=== PATIENT | male | born 1960 | race Two or more races ===

== ENCOUNTER → 2018-02-07 | Outpatient (CLI) | payer OTHER ==
[~2018-02-07] MED LIST: proair inhaler; symbicort inhaler
[2018-02-07 07:19] LABS: BASOPHILS # (AUTO) 0.04 x10^3/uL (0-0.1); BASOPHILS % (AUTO) 1 % (0-1); EOSINOPHILS # (AUTO) 0.28 x10^3/uL (0-0.4); EOSINOPHILS % (AUTO) 4 % (1-7); LYMPHOCYTES # (AUTO) 2.14 x10^3/uL (1-3.4); LYMPHOCYTES % (AUTO) 32 % (22-44); MD NO; MEAN CORPUSCULAR HGB CONC 33.8 g/dL (33.2-36.2); MEAN PLATELET VOLUME 7.2 fL (7.4-10.4); MONOCYTES # (AUTO) 0.49 x10^3/uL (0.2-0.8); MONOCYTES % (AUTO) 7 % (2-9); NEUTROPHILS # (AUTO) 3.67 x10^3/uL (1.8-6.8); NEUTROPHILS % (AUTO) 55 % (42-75); PLATELET COUNT 217 x10^3/uL (130-400); RED BLOOD COUNT 4.91 x10^6/uL (4.38-5.82)
[2018-02-07 07:29] LABS: ALANINE AMINOTRANSFERASE 32 U/L (12-78); ALBUMIN 3.4 g/dL (3.4-5.0); ANION GAP 13 mmol/L (5-15); CALCIUM 7.7 mg/dL (8.5-10.1); CHLORIDE 105 mmol/L (98-107); CREATININE 0.92 mg/dL (0.7-1.3)
[2018-02-07 07:40] LABS: ALKALINE PHOSPHATASE 90 U/L (45-117); BILIRUBIN,TOTAL 0.5 mg/dL (0.2-1.0); CHOL/HDL RATIO 6.6; CHOLESTEROL, TOTAL 225 mg/dL (140-239); HDL CHOL % 15 % (26-37); HDL CHOLESTEROL (DIRECT) 34 mg/dL (40-60); TOTAL PROTEIN 7.6 g/dL (6.4-8.2); TRIGLYCERIDES 435 mg/dL (50-200)
[2018-02-07 08:20] LABS: HEMOGLOBIN A1C 5.4 % (4.2-6.3)
== END | disposition home or self-care (01) ==
LOC: LAB 07:03
PROVIDERS: ATTEND Family Medicine
DX: E55.9 Vitamin D deficiency, unspecified (principal); E78.5 Hyperlipidemia, unspecified; G47.10 Hypersomnia, unspecified; J45.909 Unspecified asthma, uncomplicated; R53.83 Other fatigue
CPT/HCPCS: 36415; 80053; 80061; 82306; 83036; 84443; 85025

== ENCOUNTER → 2018-04-02 | Outpatient (CLI) | payer OTHER | END | disposition home or self-care (01) | LOC: LAB 09:17 | PROVIDERS: ATTEND Family Medicine | DX: E03.9 Hypothyroidism, unspecified (principal); E55.9 Vitamin D deficiency, unspecified | CPT/HCPCS: 36415; 82330; 84443 ==

== ENCOUNTER → 2018-12-02 | Outpatient (CLI) | payer OTHER ==
[2018-12-02 13:05] LABS: HEMOGLOBIN A1C 5.3 % (4.2-6.3)
[2018-12-02 13:07] LABS: CHLORIDE 110 mmol/L (98-107)
[2018-12-02 13:22] LABS: ALANINE AMINOTRANSFERASE 28 U/L (12-78); ALBUMIN 3.6 g/dL (3.4-5.0); ALKALINE PHOSPHATASE 73 U/L (45-117); ANION GAP 5 mmol/L (5-15); BILIRUBIN,TOTAL 0.3 mg/dL (0.2-1.0); CALCIUM 8.3 mg/dL (8.5-10.1); CHOL/HDL RATIO 4.6; CHOLESTEROL, TOTAL 198 mg/dL (140-239); CREATININE 0.83 mg/dL (0.7-1.3); HDL CHOL % 22 % (26-37); HDL CHOLESTEROL (DIRECT) 43 mg/dL (40-60); LDL CHOLESTEROL,CALCULATED 114 mg/dL (54-169); LDL/HDL RATIO 2.7 (0.5-3.0); TOTAL PROTEIN 7.3 g/dL (6.4-8.2); TRIGLYCERIDES 207 mg/dL (50-200); VLDL CHOLESTEROL 41 mg/dL (0-25)
== END | disposition home or self-care (01) ==
LOC: CFH 10:35
PROVIDERS: ATTEND Family Medicine
DX: E78.5 Hyperlipidemia, unspecified (principal); E03.9 Hypothyroidism, unspecified; E55.9 Vitamin D deficiency, unspecified; I10 Essential (primary) hypertension; R53.83 Other fatigue
CPT/HCPCS: 36415; 80053; 80061; 83036; 84443

== ENCOUNTER 2019-05-27 16:26 | Emergency (ER) | payer OTHER ==
[~2019-05-27] VITALS: Ht 165.1 cm; Wt 96.0 kg
[2019-05-27] MEDS ORDERED: GEMF600T8 PO (16:51)
[2019-05-27] MEDS ORDERED: LEVO50TA5 PO (16:52)
[2019-05-27] MEDS ORDERED: CHOL500050 PO (16:53)
--- NOTE | 2019-05-27 16:53 | NUR ---
THIS IS A 58 YO MALE COMING IN FOR EPIGASTRIC PAIN 04/16. PAIN STARTED AROUND 1700, DID NOT TAKE ANY MEDICATION. PATIENT DENIES EATING ANYTHING OUT OF ORDINARY FROM HIS USUAL DIET. PAIN DOES NOT RADIATE, AND IS CONSTANT. PATIENT PLACED ON SOFT TILE SETTER, NORMAL SINUS RHYTHM NOTED, CONTINUOUS SPO2 AT 94%, CYCLE BP Q1HR. CALL LIGHT IN REACH, DENIES NEEDS AT THIS TIME.
--- NOTE | 2019-05-27 16:57 | NUR ---
PATIENT STATES HE HAS INTERMITTENT NAUSEA, NO VOMITING OR DIARRHEA.
[2019-05-27] MEDS ORDERED: MAALOX/HYOSCYAMINE/LIDOCAINE 45 ML BTL ONE (17:36)
--- NOTE | 2019-05-27 17:40 | NUR ---
PATIENT MEDICATED PER EMAR, TOLERATED WELL. DENIES NEEDS AT THIS TIME.
[2019-05-27 17:53] LABS: BASOPHILS # (AUTO) 0.04 x10^3/uL (0-0.1); BASOPHILS % (AUTO) 1 % (0-1); EOSINOPHILS # (AUTO) 0.12 x10^3/uL (0-0.4); EOSINOPHILS % (AUTO) 2 % (1-7); LYMPHOCYTES # (AUTO) 1.47 x10^3/uL (1-3.4); LYMPHOCYTES % (AUTO) 23 % (22-44); MD NO; MEAN CORPUSCULAR HEMOGLOBIN 30.9 pg (27.5-34.5); MEAN CORPUSCULAR HGB CONC 33.6 g/dL (33.2-36.2); MEAN CORPUSCULAR VOLUME 91.9 fL (81-97); MEAN PLATELET VOLUME 7.2 fL (7.4-10.4); MONOCYTES # (AUTO) 0.68 x10^3/uL (0.2-0.8); MONOCYTES % (AUTO) 11 % (2-9); NEUTROPHILS # (AUTO) 4.14 x10^3/uL (1.8-6.8); NEUTROPHILS % (AUTO) 64 % (42-75); PLATELET COUNT 205 x10^3/uL (130-400); RED BLOOD COUNT 4.89 x10^6/uL (4.38-5.82); RED CELL DISTRIBUTION WIDTH 13.6 % (9.4-14.8)
[2019-05-27] MEDS ORDERED: MAALOX/HYOSCYAMINE/LIDOCAINE 45 ML BTL PO ONE (18:00)
[2019-05-27] MEDS ORDERED: SODIUM CHLORIDE FLUSH 10ML SYR IVF ONE (18:00)
[2019-05-27 18:03] LABS: ALANINE AMINOTRANSFERASE 35 U/L (12-78); ALBUMIN 3.6 g/dL (3.4-5.0); ANION GAP 6 mmol/L (5-15); CALCIUM 8.5 mg/dL (8.5-10.1); CHLORIDE 108 mmol/L (98-107); CREATININE 0.81 mg/dL (0.7-1.3)
[2019-05-27 18:06] LABS: ALKALINE PHOSPHATASE 75 U/L (45-117); BILIRUBIN,TOTAL 0.5 mg/dL (0.2-1.0); TOTAL PROTEIN 7.7 g/dL (6.4-8.2)
--- NOTE | 2019-05-27 18:11 | NUR ---
PATIENT RESTING ON CORINA, THEO, NAD, FAMILY IN ROOM. DENIES NEEDS AT THIS TIME.
--- NOTE | 2019-05-27 18:16 | NUR ---
PATIENT STATES GI COCKTAIL DID NOT RELIEVE ANY SYMPTOMS. NOTIFIED.
--- NOTE | 2019-05-27 18:34 | NUR ---
NEEDS IV FOR CT
--- NOTE | 2019-05-27 18:47 | NUR ---
Pt report from Elis melendez. This rn to assume care of pt.
[2019-05-27] MEDS ORDERED: MORPHINE SULFATE 4 MG/ML, 1ML ONE (18:50)
[2019-05-27] MEDS ORDERED: ONDANSETRON 2MG/ML, 2ML ONE (18:50)
[2019-05-27 18:56] VITALS: BP 148/92
[2019-05-27] MEDS ORDERED: ONDANSETRON 2MG/ML, 2ML IVPush ONE (19:00)
[2019-05-27] MEDS ORDERED: MORPHINE SULFATE 4 MG/ML, 1ML IVPush PRN (19:00)
[2019-05-27] MEDS ORDERED: OMNIPAQUE 350 MG/ML, 100ML BOTTLE ONE (19:23)
== END 2019-05-27 20:12 | disposition home or self-care (01) ==
LOC: ED 18:27
DX: R10.13 Epigastric pain (principal); R11.0 Nausea; I10 Essential (primary) hypertension
CPT/HCPCS: 36415; 74177; 80053; 83690; 85025; 93005; 96374; 96375; 99284; J2270; J2405; Q9967

== ENCOUNTER 2019-06-09 07:47 | Outpatient (CLI) | payer OTHER ==
[~2019-06-09 07:47] MED LIST changes: +CHOL500050 PO; +GEMF600T8 PO; +LEVO50TA5 PO
[2019-06-09 08:19] LABS: BASOPHILS # (AUTO) 0.04 x10^3/uL (0-0.1); BASOPHILS % (AUTO) 1 % (0-1); EOSINOPHILS # (AUTO) 0.22 x10^3/uL (0-0.4); EOSINOPHILS % (AUTO) 4 % (1-7); LYMPHOCYTES # (AUTO) 1.95 x10^3/uL (1-3.4); LYMPHOCYTES % (AUTO) 33 % (22-44); MD NO; MEAN CORPUSCULAR HGB CONC 33.9 g/dL (33.2-36.2); MEAN CORPUSCULAR VOLUME 91.3 fL (81-97); MEAN PLATELET VOLUME 7.2 fL (7.4-10.4); MONOCYTES # (AUTO) 0.61 x10^3/uL (0.2-0.8); MONOCYTES % (AUTO) 10 % (2-9); NEUTROPHILS # (AUTO) 3.05 x10^3/uL (1.8-6.8); NEUTROPHILS % (AUTO) 52 % (42-75); PLATELET COUNT 227 x10^3/uL (130-400); RED BLOOD COUNT 4.96 x10^6/uL (4.38-5.82); RED CELL DISTRIBUTION WIDTH 13.3 % (9.4-14.8)
[2019-06-09 08:27] LABS: CHLORIDE 110 mmol/L (98-107)
[2019-06-09 08:56] LABS: ALANINE AMINOTRANSFERASE 39 U/L (12-78); ALBUMIN 3.7 g/dL (3.4-5.0); ALKALINE PHOSPHATASE 86 U/L (45-117); ANION GAP 11 mmol/L (5-15); BILIRUBIN,TOTAL 0.4 mg/dL (0.2-1.0); CALCIUM 8.4 mg/dL (8.5-10.1); CHOLESTEROL, TOTAL 222 mg/dL (140-239); CREATININE 0.85 mg/dL (0.7-1.3); FREE T4 (FREE THYROXINE) 0.93 ng/dL (0.76-1.46); HDL CHOL % 17 % (26-37); HDL CHOLESTEROL (DIRECT) 37 mg/dL (40-60); LDL CHOLESTEROL,CALCULATED 123 mg/dL (54-169); LDL/HDL RATIO 3.3 (0.5-3.0); TOTAL PROTEIN 7.5 g/dL (6.4-8.2); TRIGLYCERIDES 312 mg/dL (50-200); VLDL CHOLESTEROL 62 mg/dL (0-25)
== END 2019-06-09 23:59 | disposition home or self-care (01) ==
LOC: LAB 07:47
PROVIDERS: ATTEND Family Medicine
DX: D51.3 Other dietary vitamin B12 deficiency anemia (principal); E03.9 Hypothyroidism, unspecified; E55.9 Vitamin D deficiency, unspecified; E78.1 Pure hyperglyceridemia; I10 Essential (primary) hypertension; R73.9 Hyperglycemia, unspecified
CPT/HCPCS: 36415; 80053; 80061; 82306; 82330; 82607; 83036; 84439; 84443; 85025

== ENCOUNTER → 2019-11-06 | Outpatient (CLI) | payer OTHER ==
[2019-11-06 10:15] LABS: ALANINE AMINOTRANSFERASE 28 U/L (12-78); ALBUMIN 3.7 g/dL (3.4-5.0); ANION GAP 7 mmol/L (5-15); CALCIUM 8.7 mg/dL (8.5-10.1); CHLORIDE 109 mmol/L (98-107); CREATININE 0.86 mg/dL (0.7-1.3)
[2019-11-06 10:24] LABS: ALKALINE PHOSPHATASE 80 U/L (45-117); BILIRUBIN,TOTAL 0.6 mg/dL (0.2-1.0); CHOLESTEROL, TOTAL 135 mg/dL (140-239); FREE T4 (FREE THYROXINE) 1.23 ng/dL (0.76-1.46); HDL CHOL % 33 % (26-37); HDL CHOLESTEROL (DIRECT) 45 mg/dL (40-60); LDL CHOLESTEROL,CALCULATED 62 mg/dL (54-169); LDL/HDL RATIO 1.4 (0.5-3.0); TOTAL PROTEIN 7.6 g/dL (6.4-8.2); TRIGLYCERIDES 139 mg/dL (50-200); VLDL CHOLESTEROL 28 mg/dL (0-25)
== END | disposition home or self-care (01) ==
LOC: LAB 09:47
PROVIDERS: ATTEND Family Medicine
DX: I10 Essential (primary) hypertension (principal); R73.9 Hyperglycemia, unspecified; E03.9 Hypothyroidism, unspecified; E78.1 Pure hyperglyceridemia; E78.5 Hyperlipidemia, unspecified
CPT/HCPCS: 36415; 80053; 80061; 83036; 84439; 84443

== ENCOUNTER 2020-01-20 15:29 | Emergency (ER) | payer OTHER ==
[~2020-01-20] VITALS: Ht 165.1 cm; Wt 88.2 kg
[2020-01-20] MEDS ORDERED: OXYMETAZOLINE NASAL SPRAY 0.05%,30ML ONE (16:08)
[2020-01-20] MEDS ORDERED: NEOSPORIN OINT. PKT 1 PACKET ONE (16:08)
[2020-01-20 16:14] VITALS: BP 140/88
--- NOTE | 2020-01-20 16:14 | NUR ---
PAPITO BYRD AT BEDSIDE FOR NASAL PACKING. THIS IS A 59 YO MALE WHO PRESENTS TO THE ER C/O INTERMITTENT LEFT NARE EPISTAXSIS SINCE SATURDAY. PT HAS APPT WITH PCP TOMORROW, BUT SENT TO ER BY WORK FOR CONT BLEEDING. BLEEDING APPEARS CONTROLLED AT THIS TIME. PT AO X 4. SKIN PWD. RESP EVEN AND UNLABORED. CALL LIGHT WITHIN REACH. WILL CONT TO MONITOR PT.
== END 2020-01-20 16:53 | disposition home or self-care (01) ==
LOC: ED 16:30
DX: R04.0 Epistaxis (principal); J45.909 Unspecified asthma, uncomplicated; I10 Essential (primary) hypertension
CPT/HCPCS: 99282

== ENCOUNTER 2020-01-23 13:02 | Emergency (ER) | payer OTHER ==
[~2020-01-23] VITALS: Ht 165.1 cm; Wt 88.0 kg
[2020-01-23 13:04] VITALS: BP 149/86
== END 2020-01-23 14:36 | disposition home or self-care (01) ==
LOC: ED 14:03
DX: Z48.00 Encounter for change or removal of nonsurgical wound dressing (principal); J45.909 Unspecified asthma, uncomplicated; I10 Essential (primary) hypertension
CPT/HCPCS: 99281

== ENCOUNTER → 2020-04-01 | Outpatient (CLI) | payer OTHER ==
[2020-04-01 10:26] LABS: BASOPHILS # (AUTO) 0.04 x10^3/uL (0-0.1); BASOPHILS % (AUTO) 1 % (0-1); EOSINOPHILS # (AUTO) 0.27 x10^3/uL (0-0.4); EOSINOPHILS % (AUTO) 4 % (1-7); LYMPHOCYTES # (AUTO) 2.33 x10^3/uL (1-3.4); LYMPHOCYTES % (AUTO) 32 % (22-44); MD NO; MEAN CORPUSCULAR HGB CONC 32.8 g/dL (33.2-36.2); MONOCYTES # (AUTO) 0.55 x10^3/uL (0.2-0.8); MONOCYTES % (AUTO) 8 % (2-9); NEUTROPHILS # (AUTO) 4.11 x10^3/uL (1.8-6.8); NEUTROPHILS % (AUTO) 56 % (42-75); PLATELET COUNT 216 x10^3/uL (130-400); RED BLOOD COUNT 4.99 x10^6/uL (4.38-5.82); RED CELL DISTRIBUTION WIDTH 13.4 % (9.4-14.8)
[2020-04-01 10:38] LABS: ALBUMIN 3.6 g/dL (3.4-5.0); ANION GAP 5 mmol/L (5-15); CALCIUM 8.3 mg/dL (8.5-10.1); CHLORIDE 109 mmol/L (98-107)
[2020-04-01 11:02] LABS: ALANINE AMINOTRANSFERASE 31 U/L (12-78); ALKALINE PHOSPHATASE 84 U/L (45-117); BILIRUBIN,TOTAL 0.7 mg/dL (0.2-1.0); CHOL/HDL RATIO 3.4; CHOLESTEROL, TOTAL 146 mg/dL (140-239); CREATININE 0.94 mg/dL (0.7-1.3); FREE T4 (FREE THYROXINE) 1.13 ng/dL (0.76-1.46); HDL CHOL % 29 % (26-37); HDL CHOLESTEROL (DIRECT) 43 mg/dL (40-60); LDL CHOLESTEROL,CALCULATED 73 mg/dL (54-169); LDL/HDL RATIO 1.7 (0.5-3.0); TOTAL PROTEIN 7.4 g/dL (6.4-8.2); TRIGLYCERIDES 149 mg/dL (50-200); VLDL CHOLESTEROL 30 mg/dL (0-25)
== END | disposition home or self-care (01) ==
LOC: LAB 10:06
PROVIDERS: ATTEND Family Medicine
DX: I10 Essential (primary) hypertension (principal); E55.9 Vitamin D deficiency, unspecified; E03.9 Hypothyroidism, unspecified; D51.3 Other dietary vitamin B12 deficiency anemia; E78.1 Pure hyperglyceridemia; R73.9 Hyperglycemia, unspecified
CPT/HCPCS: 36415; 80053; 80061; 82306; 82607; 83036; 84439; 84443; 85025